=== PATIENT | male | born 1935 | race African-American/Black ===

== ENCOUNTER 2018-03-01 17:21 | Inpatient (IN) | payer OTHER ==
[~2018-03-01] VITALS: Ht 182.9 cm; Wt 78.9 kg
[2018-03-01 19:02] LABS: MEAN CORPUSCULAR HEMOGLOBIN 32.9 pg (28.0-32.0); MEAN CORPUSCULAR VOLUME 97.5 fL (80.0-94.0); MEAN PLATELET VOLUME 9.6 fl (7.4-10.4); PLATELET 63 x1000/uL (130-400); RED BLOOD CELL COUNT 1.57 mill/uL (4.7-6.1); RED CELL DISTRIBUTION WIDTH 18.1 % (11.6-14.6)
[2018-03-01 19:08] LABS: CHLORIDE 109 mEq/L (98-107)
[2018-03-01 19:09] LABS: HEMOGLOBIN. 5.2 g/dL (14.0-18.0)
[2018-03-01 19:10] LABS: HEMATOCRIT. 15.3 % (42.0-52.0)
[2018-03-01 19:11] LABS: INR 1.1; PROTHROMBIN TIME 10.7 sec (9.1-11.1)
[2018-03-01 19:50] LABS: PLATELET ESTIMATE DECREASED
[2018-03-01 21:20] VITALS: BP 95/53
[2018-03-01 21:28] VITALS: BP 95/53
[2018-03-01 22:10] VITALS: BP 90/54
[2018-03-01] MEDS ORDERED: TRAMADOL 50MG TABLET PO PRN (22:30)
[2018-03-01] MEDS ORDERED: DEXTROSE 50% WATER 50ML SYRINGE IV PRN (22:30)
[2018-03-01] MEDS ORDERED: ZOLPIDEM TARTRATE 5MG TABLET PO PRN (22:30)
[2018-03-01 23:35] VITALS: BP 96/57
[2018-03-01] MEDS ORDERED: ASPI-1159 MT (23:59)
[2018-03-01] MEDS ORDERED: SACU1TAB MT (23:59)
[2018-03-01] MEDS ORDERED: ALLO100T MT (23:59)
[2018-03-01] MEDS ORDERED: CARV3.1242 MT (23:59)
[2018-03-01] MEDS ORDERED: CLOP75TA33 MT (23:59)
[2018-03-01] MEDS ORDERED: SITA50TA3 MT (23:59)
[2018-03-01] MEDS ORDERED: SIMV40TA5 MT (23:59)
[2018-03-01] MEDS ORDERED: TAMS0.4C31 MT (23:59)
[2018-03-01] MEDS ORDERED: FINA5TAB11 MT (23:59)
[2018-03-01] MEDS ORDERED: FURO40TA5 MT (23:59)
[2018-03-01] MEDS ORDERED: POTA10CA42 MT (23:59)
[2018-03-02] VITALS (43 sets, daily range): BP systolic 89–136; BP diastolic 35–107
[2018-03-02] MEDS: INSULIN LISPRO 100 UNITS/ML SUBCUT SCH ×4 (06:40→21:38)
[2018-03-02] MEDS: BLOOD SUGAR DIAGNOSTIC STRIP TEST SCH ×8 (06:40→23:26)
[2018-03-02] MEDS ORDERED: PANTOPRAZOLE 40MG DR TABLET PO SCH (07:20)
[2018-03-02 07:28] LABS: CHLORIDE 111 mEq/L (98-107)
[2018-03-02 07:31] LABS: MEAN CORPUSCULAR HEMOGLOBIN 31.8 pg (28.0-32.0); MEAN CORPUSCULAR VOLUME 91.5 fL (80.0-94.0); MEAN PLATELET VOLUME 11.1 fl (7.4-10.4); PLATELET 65 x1000/uL (130-400); RED BLOOD CELL COUNT 2.15 mill/uL (4.7-6.1)
[2018-03-02 07:42] LABS: HEMOGLOBIN. 6.8 g/dL (14.0-18.0)
[2018-03-02 07:43] LABS: HEMATOCRIT. 19.7 % (42.0-52.0)
[2018-03-02] MEDS ORDERED: FUROSEMIDE 40MG/4ML VIAL IVP NR (09:45)
[2018-03-02] MEDS: CARVEDILOL 3.125 MG TABLET PO SCH ×2 (13:40→21:00)
[2018-03-02] MEDS ORDERED: ETOMIDATE 2MG/ML 10ML VIAL IV ONE (14:00)
[2018-03-02] MEDS ORDERED: SODIUM BICARBONATE 7.5% 0.9 MEQ/ML 50ML SYR IV ONE (14:15)
[2018-03-02] MEDS ORDERED: CALCIUM CHLORIDE 1GM/10ML SYR IV ONE (14:15)
[2018-03-02 14:26] LABS: BG BASE EXCESS -7.5 mmol/L (-2.0-2.0); BG CARBOXYHEMOGLOBIN 0.6 % (0.5-1.5); BG DEOXYHEMOGLOBIN 12.9 % (0.0-5.0); BG FRACTION INSPIRED OXYGEN 28; BG HCO3 ACT 15.3 mmol/L (22.0-26.0); BG METHEMOGLOBIN 0.1 % (0.0-1.5); BG OXYHEMOGLOBIN 86.4 % (94.0-97.0); BG PCO2 22.8 mmHg (35.0-45.0); BG PH 7.446 (7.350-7.450); BG PO2 53.3 mmHg (75.0-100.0); BG SAMPLE SITE RIGHT RADIAL; BG TOTAL HEMOGLOBIN 8.5 g/dL (12.0-18.0); BG VENT MODE NASAL CANNULA
[2018-03-02] MEDS ORDERED: IPRATROPIUM/ALBUTEROL 0.5-3(2.5)MG/3ML NEB HHN PRN (14:45)
[2018-03-02] MEDS ORDERED: LIDOCAINE HCL/PF 1% 2ML VIAL ONE (15:12)
[2018-03-02] MEDS ORDERED: LEVOFLOXACIN 250MG PREMIX 50 ML IV ONE (15:45)
[2018-03-02] MEDS: IPRATROPIUM/ALBUTEROL 0.5-3(2.5)MG/3ML NEB HHN SCH ×3 (16:05→23:33)
[2018-03-02 16:06] LABS: PLATELET ESTIMATE DECREASED
[2018-03-02] MEDS ORDERED: LORAZEPAM 2MG/ML CPJ IV PRN (16:30)
[2018-03-02 16:39] LABS: BG BASE EXCESS -16.4 mmol/L (-2.0-2.0); BG CARBOXYHEMOGLOBIN 0.3 % (0.5-1.5); BG DEOXYHEMOGLOBIN 12.1 % (0.0-5.0); BG FRACTION INSPIRED OXYGEN 100; BG HCO3 ACT 11.2 mmol/L (22.0-26.0); BG METHEMOGLOBIN 0.5 % (0.0-1.5); BG OXYGEN SATURATION 87.8 % (92.0-98.5); BG OXYHEMOGLOBIN 87.1 % (94.0-97.0); BG PCO2 33.3 mmHg (35.0-45.0); BG PH 7.146 (7.350-7.450); BG PO2 72.2 mmHg (75.0-100.0); BG SAMPLE SITE RIGHT RADIAL; BG TIDAL VOLUME(mL) 500 mL; BG TOTAL HEMOGLOBIN 8.9 g/dL (12.0-18.0); BG VENT MODE VENT - A/C; BG VENT RATE 16 set
[2018-03-02] MEDS ORDERED: PHENYLEPHRINE 40 MG in DEXT 5% WATER 246 ML IV PRN (17:00)
[2018-03-02] MEDS ORDERED: SODIUM BICARBONATE 8.4% 1 MEQ/ML 50ML SYR IV NR ×3 (17:15→19:20)
[2018-03-02] MEDS ORDERED: MORPHINE SULFATE 4 MG/ML CPJ (NOT FOR IM USE) IV PRN (17:30)
[2018-03-02] MEDS: PANTOPRAZOLE SODIUM 40 MG/VIAL IV SCH (17:39)
[2018-03-02 17:54] LABS: HEMATOCRIT. 26.5 % (42.0-52.0); HEMOGLOBIN. 8.7 g/dL (14.0-18.0); MEAN CORPUSCULAR HEMOGLOBIN 30.7 pg (28.0-32.0); MEAN CORPUSCULAR VOLUME 92.8 fL (80.0-94.0); MEAN PLATELET VOLUME 10.4 fl (7.4-10.4); PLATELET 84 x1000/uL (130-400); RED BLOOD CELL COUNT 2.85 mill/uL (4.7-6.1); RED CELL DISTRIBUTION WIDTH 17.6 % (11.6-14.6)
[2018-03-02 17:58] LABS: CHLORIDE 109 mEq/L (98-107)
[2018-03-02] MEDS ORDERED: AZTREONAM 1 G in DEXTROSE 5% WATER 50 ML IV NR (18:00)
[2018-03-02 18:05] LABS: BG BASE EXCESS -3.9 mmol/L (-2.0-2.0); BG CARBOXYHEMOGLOBIN 0.3 % (0.5-1.5); BG DEOXYHEMOGLOBIN 2.2 % (0.0-5.0); BG HCO3 ACT 19.9 mmol/L (22.0-26.0); BG METHEMOGLOBIN 0.4 % (0.0-1.5); BG OXYGEN SATURATION 97.8 % (92.0-98.5); BG OXYHEMOGLOBIN 97.1 % (94.0-97.0); BG PH 7.426 (7.350-7.450); BG PO2 132.3 mmHg (75.0-100.0); BG SAMPLE SITE RIGHT RADIAL; BG TIDAL VOLUME(mL) 500 mL; BG TOTAL HEMOGLOBIN 8.1 g/dL (12.0-18.0); BG VENT MODE VENT - A/C; BG VENT RATE 16 set
[2018-03-02 18:07] LABS: CREATINE KINASE 483 IU/L (39-308)
[2018-03-02 18:09] LABS: CREATINE KINASE MB FRACTION 25.4 ng/mL (0.5-3.6)
[2018-03-02] MEDS: SODIUM BICARBONATE 50 MEQ in DEXT 5%/0.45% NACL 1000ML 1,000 ML IV SCH ×3 (18:15)
[2018-03-02] MEDS: PROPOFOL 10MG/ML 100ML 100 ML IV PRN ×2 (18:26→22:11)
[2018-03-02] MEDS: NOREPINEPHRINE 8 MG in DEXTROSE 5% WATER 250 ML IV SCH (18:27)
[2018-03-02 18:54] LABS: PLATELET ESTIMATE DECREASED
[2018-03-02] MEDS ORDERED: DEXTROSE 50% WATER 50ML SYRINGE IV NR (19:15)
[2018-03-02] MEDS ORDERED: SODIUM POLYSTYRENE SULFONATE 15 G/60 ML BOT NG NR (19:20)
[2018-03-02] MEDS ORDERED: INSULIN REGULAR (HUMULIN R) 300UNITS/3ML IV NR ×2 (19:27→19:45)
[2018-03-02] MEDS: METRONIDAZOLE 500 MG PREMIX 100 ML IV SCH (20:52)
[2018-03-03] VITALS (96 sets, daily range): BP systolic 64–134; BP diastolic 30–88
[2018-03-03] MEDS: NOREPINEPHRINE 8 MG in DEXTROSE 5% WATER 250 ML IV SCH (00:09)
[2018-03-03 00:43] LABS: CLARITY URINE CLOUDY (CLEAR); COLOR URINE YELLOW (YELLOW); KETONES URINE NEGATIVE (NEGATIVE); LEUKOCYTE ESTERASE URINE 1+ (NEGATIVE); NITRITE URINE NEGATIVE (NEGATIVE); OCCULT BLOOD URINE 3+ (NEGATIVE); PROTEIN URINE 1+ (NEGATIVE); SPECIFIC GRAVITY URINE 1.015 (1.005-1.030)
[2018-03-03] MEDS: FUROSEMIDE 40MG/4ML VIAL IVP SCH ×3 (01:56→17:17)
[2018-03-03] MEDS ORDERED: NOREPINEPHRINE 8 MG in DEXTROSE 5% WATER 250 ML IV PRN (04:00)
[2018-03-03] MEDS: IPRATROPIUM/ALBUTEROL 0.5-3(2.5)MG/3ML NEB HHN SCH ×5 (04:14→21:19)
[2018-03-03] MEDS: PROPOFOL 10MG/ML 100ML 100 ML IV PRN ×4 (05:17→19:43)
[2018-03-03] MEDS: AZTREONAM 500MG in DEXTROSE 5% WATER 50ML IV SCH ×2 (05:26→17:18)
[2018-03-03] MEDS: METRONIDAZOLE 500 MG PREMIX 100 ML IV SCH ×3 (06:02→21:37)
[2018-03-03 06:19] LABS: HEMATOCRIT. 24.9 % (42.0-52.0); HEMOGLOBIN. 8.5 g/dL (14.0-18.0); MEAN CORPUSCULAR HEMOGLOBIN 31.3 pg (28.0-32.0); MEAN CORPUSCULAR VOLUME 91.7 fL (80.0-94.0); MEAN PLATELET VOLUME 10.4 fl (7.4-10.4); PLATELET 75 x1000/uL (130-400); RED BLOOD CELL COUNT 2.71 mill/uL (4.7-6.1); RED CELL DISTRIBUTION WIDTH 16.8 % (11.6-14.6)
[2018-03-03 08:51] LABS: PLATELET ESTIMATE DECREASED
[2018-03-03 08:56] LABS: BG BASE EXCESS -1.8 mmol/L (-2.0-2.0); BG CARBOXYHEMOGLOBIN 0.3 % (0.5-1.5); BG DEOXYHEMOGLOBIN 15.8 % (0.0-5.0); BG METHEMOGLOBIN 0.4 % (0.0-1.5); BG OXYGEN SATURATION 84.1 % (92.0-98.5); BG OXYHEMOGLOBIN 83.5 % (94.0-97.0); BG PCO2 33.1 mmHg (35.0-45.0); BG PO2 51.1 mmHg (75.0-100.0); BG SAMPLE SITE RIGHT RADIAL; BG TIDAL VOLUME(mL) 500 mL; BG TOTAL HEMOGLOBIN 8.2 g/dL (12.0-18.0); BG VENT MODE VENT - A/C; BG VENT RATE 16 set
[2018-03-03] MEDS ORDERED: FUROSEMIDE 40MG/4ML VIAL IVP SCH (09:00)
[2018-03-03] MEDS: CARVEDILOL 3.125 MG TABLET PO SCH ×2 (09:00→21:37)
[2018-03-03] MEDS: PANTOPRAZOLE SODIUM 40 MG/VIAL IV SCH (09:27)
[2018-03-03 10:56] LABS: BG BASE EXCESS -2.1 mmol/L (-2.0-2.0); BG CARBOXYHEMOGLOBIN 0.3 % (0.5-1.5); BG DEOXYHEMOGLOBIN 0.9 % (0.0-5.0); BG HCO3 ACT 21.2 mmol/L (22.0-26.0); BG METHEMOGLOBIN 0.5 % (0.0-1.5); BG OXYGEN SATURATION 99.1 % (92.0-98.5); BG OXYHEMOGLOBIN 98.3 % (94.0-97.0); BG PCO2 30.2 mmHg (35.0-45.0); BG PH 7.464 (7.350-7.450); BG PO2 413.1 mmHg (75.0-100.0); BG SAMPLE SITE RIGHT BRACHIAL; BG TIDAL VOLUME(mL) 500 mL; BG TOTAL HEMOGLOBIN 8.3 g/dL (12.0-18.0); BG VENT MODE VENT - A/C; BG VENT RATE 16 set
[2018-03-03] MEDS: BLOOD SUGAR DIAGNOSTIC STRIP TEST SCH ×3 (11:35→23:35)
[2018-03-03] MEDS: INSULIN LISPRO 100 UNITS/ML SUBCUT SCH ×3 (11:44→23:36)
[2018-03-03] MEDS: DOBUTAMINE 250MG PREMIX 250 ML IV SCH ×3 (12:04→16:43)
[2018-03-03] MEDS: SODIUM BICARBONATE 50 MEQ in DEXT 5%/0.45% NACL 1000ML 1,000 ML IV SCH ×3 (13:04)
[2018-03-03] MEDS ORDERED: DOBUTAMINE HCL 500 MG in DEXT 5% WATER 210 ML IV SCH ×2 (16:45→23:00)
[2018-03-03] MEDS: NOREPINEPHRINE 16 MG in DEXT 5% WATER 234 ML IV PRN (17:18)
[2018-03-03] MEDS: DOBUTAMINE HCL IN DEXTROSE 5 % 250 ML IV PRN ×2 (18:15→21:50)
[2018-03-03] MEDS ORDERED: DOBUTAMINE HCL IN DEXTROSE 5 % 250 ML IV PRN ×2 (22:04→23:45)
[2018-03-03] MEDS ORDERED: DOBUTAMINE 250MG PREMIX 250 ML IV SCH (22:10)
[2018-03-04] VITALS (108 sets, daily range): BP systolic 73–147; BP diastolic 35–65
[2018-03-04] MEDS: PROPOFOL 10MG/ML 100ML 100 ML IV PRN ×4 (00:14→20:27)
[2018-03-04] MEDS: IPRATROPIUM/ALBUTEROL 0.5-3(2.5)MG/3ML NEB HHN SCH ×6 (00:59→20:19)
[2018-03-04] MEDS: DOBUTAMINE HCL 500 MG in DEXT 5% WATER 210 ML IV SCH ×3 (01:16→17:50)
[2018-03-04] MEDS: FUROSEMIDE 40MG/4ML VIAL IVP SCH ×3 (02:15→17:50)
[2018-03-04] MEDS: AZTREONAM 500MG in DEXTROSE 5% WATER 50ML IV SCH ×2 (05:21→19:40)
[2018-03-04] MEDS: METRONIDAZOLE 500 MG PREMIX 100 ML IV SCH ×3 (05:21→23:12)
[2018-03-04] MEDS: BLOOD SUGAR DIAGNOSTIC STRIP TEST SCH ×3 (05:26→17:16)
[2018-03-04] MEDS: INSULIN LISPRO 100 UNITS/ML SUBCUT SCH ×3 (05:26→17:16)
[2018-03-04 05:43] LABS: BASOPHILS % 0.1 % (0.0-2.0); EOSINOPHILS % 0.3 % (0.0-5.0); LYMPHOCYTES % 55.3 % (20.0-50.0); MEAN CORPUSCULAR VOLUME 91.2 fL (80.0-94.0); MEAN PLATELET VOLUME 9.7 fl (7.4-10.4); MONOCYTES % 3.7 % (2.0-8.0); NEUTROPHILS % 40.6 % (40.0-76.0); RED BLOOD CELL COUNT 2.25 mill/uL (4.7-6.1); RED CELL DISTRIBUTION WIDTH 16.3 % (11.6-14.6)
[2018-03-04 06:02] LABS: HEMATOCRIT. 20.5 % (42.0-52.0)
[2018-03-04 08:37] LABS: BG BASE EXCESS -2.3 mmol/L (-2.0-2.0); BG CARBOXYHEMOGLOBIN 0.5 % (0.5-1.5); BG DEOXYHEMOGLOBIN 1.3 % (0.0-5.0); BG FRACTION INSPIRED OXYGEN 50; BG HCO3 ACT 21.1 mmol/L (22.0-26.0); BG METHEMOGLOBIN 0.4 % (0.0-1.5); BG OXYGEN SATURATION 98.7 % (92.0-98.5); BG OXYHEMOGLOBIN 97.8 % (94.0-97.0); BG PCO2 29.5 mmHg (35.0-45.0); BG PH 7.473 (7.350-7.450); BG PO2 190.9 mmHg (75.0-100.0); BG SAMPLE SITE RIGHT RADIAL; BG TIDAL VOLUME(mL) 500 mL; BG VENT MODE VENT - A/C; BG VENT RATE 16 set
[2018-03-04] MEDS: CARVEDILOL 3.125 MG TABLET PO SCH ×2 (08:47→21:00)
[2018-03-04] MEDS: PANTOPRAZOLE SODIUM 40 MG/VIAL IV SCH (09:03)
[2018-03-04] MEDS ORDERED: AMIODARONE HCL 150 MG in DEXT 5% WATER 100 ML IV NR (10:45)
[2018-03-04] MEDS: AMIODARONE HCL 900 MG in DEXT 5% WATER 500 ML IV PRN (11:11)
[2018-03-04 12:33] LABS: MEAN CORPUSCULAR HEMOGLOBIN 31.4 pg (28.0-32.0); MEAN CORPUSCULAR VOLUME 89.3 fL (80.0-94.0); RED CELL DISTRIBUTION WIDTH 16.6 % (11.6-14.6)
[2018-03-04 12:40] LABS: HEMATOCRIT 18.8 % (42.0-52.0); HEMOGLOBIN 6.6 g/dL (14.0-18.0)
[2018-03-04] MEDS: SODIUM BICARBONATE 50 MEQ in DEXT 5%/0.45% NACL 1000ML 1,000 ML IV SCH ×3 (12:40)
[2018-03-04 12:41] LABS: PLATELET 40 x1000/uL (130-400)
[2018-03-04 12:50] LABS: INR 1.1; PARTIAL THROMBOPLASTIN TIME 36.1 sec (23.4-31.0); PROTHROMBIN TIME 11.3 sec (9.1-11.1)
[2018-03-04 13:30] LABS: PLATELET 40 x1000/uL (130-400)
[2018-03-04 16:56] LABS: HEMOGLOBIN 8.2 g/dL (14.0-18.0)
[2018-03-04] MEDS: NOREPINEPHRINE 16 MG in DEXT 5% WATER 234 ML IV PRN (20:32)
[2018-03-05] VITALS (87 sets, daily range): BP systolic 88–137; BP diastolic 43–83
[2018-03-05] MEDS: IPRATROPIUM/ALBUTEROL 0.5-3(2.5)MG/3ML NEB HHN SCH ×6 (01:00→20:17)
[2018-03-05] MEDS: DOBUTAMINE HCL 500 MG in DEXT 5% WATER 210 ML IV SCH ×3 (03:29→23:55)
[2018-03-05] MEDS: PROPOFOL 10MG/ML 100ML 100 ML IV PRN ×3 (04:54→23:17)
[2018-03-05 05:21] LABS: HEMATOCRIT 24.1 % (42.0-52.0); HEMOGLOBIN 8.2 g/dL (14.0-18.0); MEAN CORPUSCULAR HEMOGLOBIN 30.5 pg (28.0-32.0); MEAN CORPUSCULAR VOLUME 89.5 fL (80.0-94.0); PLATELET 57 x1000/uL (130-400); RED BLOOD CELL COUNT 2.69 mill/uL (4.7-6.1); RED CELL DISTRIBUTION WIDTH 16.1 % (11.6-14.6)
[2018-03-05] MEDS: AZTREONAM 500MG in DEXTROSE 5% WATER 50ML IV SCH ×2 (05:25→17:45)
[2018-03-05 05:30] LABS: CHLORIDE 102 mEq/L (98-107)
[2018-03-05] MEDS: BLOOD SUGAR DIAGNOSTIC STRIP TEST SCH ×5 (06:00→23:23)
[2018-03-05] MEDS: METRONIDAZOLE 500 MG PREMIX 100 ML IV SCH ×3 (06:33→21:21)
[2018-03-05] MEDS: FUROSEMIDE 40MG/4ML VIAL IVP SCH ×2 (06:34→17:45)
[2018-03-05] MEDS: INSULIN LISPRO 100 UNITS/ML SUBCUT SCH ×5 (06:36→23:23)
[2018-03-05 08:07] LABS: BG BASE EXCESS -1.4 mmol/L (-2.0-2.0); BG CARBOXYHEMOGLOBIN 0.3 % (0.5-1.5); BG DEOXYHEMOGLOBIN 1.6 % (0.0-5.0); BG FRACTION INSPIRED OXYGEN 40; BG METHEMOGLOBIN 0.5 % (0.0-1.5); BG OXYGEN SATURATION 98.4 % (92.0-98.5); BG OXYHEMOGLOBIN 97.6 % (94.0-97.0); BG PCO2 31.7 mmHg (35.0-45.0); BG PO2 143.5 mmHg (75.0-100.0); BG SAMPLE SITE RIGHT BRACHIAL; BG TIDAL VOLUME(mL) 500 mL; BG TOTAL HEMOGLOBIN 8.7 g/dL (12.0-18.0); BG VENT MODE VENT - A/C; BG VENT RATE 16 set
[2018-03-05] MEDS: CARVEDILOL 3.125 MG TABLET PO SCH ×2 (08:46→20:20)
[2018-03-05] MEDS: PANTOPRAZOLE SODIUM 40 MG/VIAL IV SCH (08:47)
[2018-03-05] MEDS: SODIUM BICARBONATE 50 MEQ in DEXT 5%/0.45% NACL 1000ML 1,000 ML IV SCH ×3 (08:47)
[2018-03-05] MEDS: AMIODARONE HCL 900 MG in DEXT 5% WATER 500 ML IV PRN (09:04)
[2018-03-05] MEDS ORDERED: POTASSIUM CHLORIDE 20MEQ/PACKET NG NR (10:30)
[2018-03-05] MEDS ORDERED: DEXT 5%/0.45% NACL 1000ML 1,000 ML IV SCH (14:45)
[2018-03-05] MEDS ORDERED: PROPOFOL 10MG/ML 100ML 100 ML IV PRN ×2 (19:28→19:30)
[2018-03-05] MEDS: AMIODARONE HCL 200 MG TABLET NG SCH (21:21)
[2018-03-06] VITALS (101 sets, daily range): BP systolic 81–123; BP diastolic 44–66
[2018-03-06] MEDS: IPRATROPIUM/ALBUTEROL 0.5-3(2.5)MG/3ML NEB HHN SCH ×6 (00:14→20:39)
[2018-03-06] MEDS: AZTREONAM 500MG in DEXTROSE 5% WATER 50ML IV SCH ×2 (05:11→17:07)
[2018-03-06] MEDS: BLOOD SUGAR DIAGNOSTIC STRIP TEST SCH ×3 (05:28→17:19)
[2018-03-06] MEDS: INSULIN LISPRO 100 UNITS/ML SUBCUT SCH ×4 (05:35→23:59)
[2018-03-06] MEDS: METRONIDAZOLE 500 MG PREMIX 100 ML IV SCH ×3 (05:57→21:29)
[2018-03-06 06:11] LABS: HEMOGLOBIN 7.7 g/dL (14.0-18.0); MEAN CORPUSCULAR VOLUME 88.9 fL (80.0-94.0); PLATELET 51 x1000/uL (130-400); RED BLOOD CELL COUNT 2.47 mill/uL (4.7-6.1); RED CELL DISTRIBUTION WIDTH 15.7 % (11.6-14.6)
[2018-03-06] MEDS: FUROSEMIDE 40MG/4ML VIAL IVP SCH ×2 (06:18→17:07)
[2018-03-06] MEDS: PROPOFOL 10MG/ML 100ML 100 ML IV PRN ×2 (06:29→14:27)
[2018-03-06] MEDS: DOBUTAMINE HCL 500 MG in DEXT 5% WATER 210 ML IV SCH ×2 (07:55→17:08)
[2018-03-06] MEDS ORDERED: FUROSEMIDE 40MG/4ML VIAL IVP SCH (08:00)
[2018-03-06] MEDS: PANTOPRAZOLE SODIUM 40 MG/VIAL IV SCH (08:28)
[2018-03-06] MEDS: AMIODARONE HCL 200 MG TABLET NG SCH ×2 (08:28→21:29)
[2018-03-06] MEDS: CARVEDILOL 3.125 MG TABLET PO SCH ×2 (08:29→21:29)
[2018-03-06 08:32] LABS: BG BASE EXCESS 3.5 mmol/L (-2.0-2.0); BG CARBOXYHEMOGLOBIN 0.3 % (0.5-1.5); BG DEOXYHEMOGLOBIN 1.8 % (0.0-5.0); BG FRACTION INSPIRED OXYGEN 30; BG HCO3 ACT 26.8 mmol/L (22.0-26.0); BG METHEMOGLOBIN 0.6 % (0.0-1.5); BG OXYGEN SATURATION 98.2 % (92.0-98.5); BG OXYHEMOGLOBIN 97.3 % (94.0-97.0); BG PH 7.502 (7.350-7.450); BG PO2 123.6 mmHg (75.0-100.0); BG SAMPLE SITE RIGHT RADIAL; BG TIDAL VOLUME(mL) 500 mL; BG VENT MODE VENT - A/C; BG VENT RATE 16 set
[2018-03-06] MEDS ORDERED: POTASSIUM CHLORIDE 20MEQ TABLET SR PO NR (18:00)
[2018-03-06 18:29] LABS: HEMATOCRIT 25.1 % (42.0-52.0); HEMOGLOBIN 8.6 g/dL (14.0-18.0); MEAN CORPUSCULAR HEMOGLOBIN 30.5 pg (28.0-32.0); MEAN CORPUSCULAR VOLUME 88.8 fL (80.0-94.0); RED BLOOD CELL COUNT 2.83 mill/uL (4.7-6.1)
[2018-03-06 18:55] LABS: PLATELET 46 x1000/uL (130-400)
[2018-03-06] MEDS ORDERED: PROPOFOL 10MG/ML 100ML 100 ML IV PRN (19:15)
[2018-03-06 20:16] LABS: BG BASE EXCESS 1.5 mmol/L (-2.0-2.0); BG CARBOXYHEMOGLOBIN 0.3 % (0.5-1.5); BG DEOXYHEMOGLOBIN 2.2 % (0.0-5.0); BG FRACTION INSPIRED OXYGEN 30; BG METHEMOGLOBIN 0.4 % (0.0-1.5); BG OXYGEN SATURATION 97.8 % (92.0-98.5); BG OXYHEMOGLOBIN 97.1 % (94.0-97.0); BG PCO2 30.5 mmHg (35.0-45.0); BG PH 7.514 (7.350-7.450); BG PO2 112.6 mmHg (75.0-100.0); BG PRESSURE SUPPORT 10; BG SAMPLE SITE RIGHT RADIAL; BG TOTAL HEMOGLOBIN 10.3 g/dL (12.0-18.0); BG VENT MODE VENT - CPAP
[2018-03-07] VITALS (78 sets, daily range): BP systolic 96–143; BP diastolic 41–91
[2018-03-07] MEDS: IPRATROPIUM/ALBUTEROL 0.5-3(2.5)MG/3ML NEB HHN SCH ×7 (00:08→23:35)
[2018-03-07] MEDS: DOBUTAMINE HCL 500 MG in DEXT 5% WATER 210 ML IV SCH ×2 (03:43→13:33)
[2018-03-07] MEDS: AZTREONAM 500MG in DEXTROSE 5% WATER 50ML IV SCH ×2 (05:01→17:21)
[2018-03-07] MEDS: INSULIN LISPRO 100 UNITS/ML SUBCUT SCH ×3 (05:09→17:29)
[2018-03-07] MEDS: BLOOD SUGAR DIAGNOSTIC STRIP TEST SCH ×4 (05:10→17:21)
[2018-03-07] MEDS: METRONIDAZOLE 500 MG PREMIX 100 ML IV SCH ×3 (05:50→21:50)
[2018-03-07] MEDS: FUROSEMIDE 40MG/4ML VIAL IVP SCH ×2 (06:28→17:21)
[2018-03-07 06:38] LABS: BASOPHILS % 0.1 % (0.0-2.0); HEMATOCRIT. 24.2 % (42.0-52.0); HEMOGLOBIN. 8.5 g/dL (14.0-18.0); LYMPHOCYTES % 61.2 % (20.0-50.0); MEAN CORPUSCULAR HEMOGLOBIN 30.9 pg (28.0-32.0); MEAN CORPUSCULAR VOLUME 88.4 fL (80.0-94.0); MEAN PLATELET VOLUME 9.7 fl (7.4-10.4); MONOCYTES % 2.5 % (2.0-8.0); NEUTROPHILS % 35.2 % (40.0-76.0); RED BLOOD CELL COUNT 2.74 mill/uL (4.7-6.1); RED CELL DISTRIBUTION WIDTH 15.8 % (11.6-14.6)
[2018-03-07 06:48] LABS: PLATELET 47 x1000/uL (130-400)
[2018-03-07] MEDS ORDERED: KCL 20MEQ/100ML PREMIX 100 ML IV SCH (08:00)
[2018-03-07 08:11] LABS: BG BASE EXCESS 2.1 mmol/L (-2.0-2.0); BG CARBOXYHEMOGLOBIN 0.2 % (0.5-1.5); BG DEOXYHEMOGLOBIN 2.2 % (0.0-5.0); BG FRACTION INSPIRED OXYGEN 30; BG HCO3 ACT 25.5 mmol/L (22.0-26.0); BG METHEMOGLOBIN 0.1 % (0.0-1.5); BG OXYGEN SATURATION 97.8 % (92.0-98.5); BG OXYHEMOGLOBIN 97.5 % (94.0-97.0); BG PCO2 34.6 mmHg (35.0-45.0); BG PH 7.485 (7.350-7.450); BG PO2 109.2 mmHg (75.0-100.0); BG SAMPLE SITE RIGHT RADIAL; BG TOTAL HEMOGLOBIN 8.5 g/dL (12.0-18.0); BG VENT MODE VENT - CPAP
[2018-03-07] MEDS: PANTOPRAZOLE SODIUM 40 MG/VIAL IV SCH (08:40)
[2018-03-07] MEDS: AMIODARONE HCL 200 MG TABLET NG SCH ×2 (08:41→21:43)
[2018-03-07] MEDS: CARVEDILOL 3.125 MG TABLET PO SCH ×3 (08:43→21:43)
[2018-03-07] MEDS ORDERED: LIDOCAINE HCL 1% 20ML VIAL (Pyxis) INJ ONE (08:53)
[2018-03-07 12:51] LABS: BG BASE EXCESS 3.8 mmol/L (-2.0-2.0); BG CARBOXYHEMOGLOBIN 0.1 % (0.5-1.5); BG DEOXYHEMOGLOBIN 2.4 % (0.0-5.0); BG FRACTION INSPIRED OXYGEN 40; BG HCO3 ACT 27.2 mmol/L (22.0-26.0); BG METHEMOGLOBIN 0.4 % (0.0-1.5); BG OXYGEN SATURATION 97.6 % (92.0-98.5); BG OXYHEMOGLOBIN 97.1 % (94.0-97.0); BG PCO2 36.4 mmHg (35.0-45.0); BG PH 7.492 (7.350-7.450); BG PO2 111.4 mmHg (75.0-100.0); BG SAMPLE SITE RIGHT RADIAL; BG TOTAL HEMOGLOBIN 8.6 g/dL (12.0-18.0); BG VENT MODE MASK - AEROSOL
[2018-03-08] VITALS (22 sets, daily range): BP systolic 89–112; BP diastolic 50–72
[2018-03-08] MEDS: DOBUTAMINE HCL 500 MG in DEXT 5% WATER 210 ML IV SCH ×2 (01:28→13:05)
[2018-03-08] MEDS: IPRATROPIUM/ALBUTEROL 0.5-3(2.5)MG/3ML NEB HHN SCH ×5 (04:14→21:33)
[2018-03-08] MEDS: AZTREONAM 500MG in DEXTROSE 5% WATER 50ML IV SCH ×2 (06:23→17:54)
[2018-03-08] MEDS: METRONIDAZOLE 500 MG PREMIX 100 ML IV SCH ×3 (06:23→22:12)
[2018-03-08] MEDS: BLOOD SUGAR DIAGNOSTIC STRIP TEST SCH ×4 (06:23→17:17)
[2018-03-08 06:28] LABS: BASOPHILS % 1.1 % (0.0-2.0); EOSINOPHILS % 0.3 % (0.0-5.0); HEMATOCRIT. 23.5 % (42.0-52.0); HEMOGLOBIN. 8.2 g/dL (14.0-18.0); LYMPHOCYTES % 60.5 % (20.0-50.0); MEAN CORPUSCULAR HEMOGLOBIN 31.1 pg (28.0-32.0); MEAN CORPUSCULAR VOLUME 89.2 fL (80.0-94.0); MEAN PLATELET VOLUME 9.4 fl (7.4-10.4); MONOCYTES % 2.8 % (2.0-8.0); NEUTROPHILS % 35.3 % (40.0-76.0); RED BLOOD CELL COUNT 2.64 mill/uL (4.7-6.1); RED CELL DISTRIBUTION WIDTH 16.2 % (11.6-14.6)
[2018-03-08] MEDS: INSULIN LISPRO 100 UNITS/ML SUBCUT SCH ×4 (06:31→17:17)
[2018-03-08 06:48] LABS: PLATELET 45 x1000/uL (130-400)
[2018-03-08] MEDS: FUROSEMIDE 40MG/4ML VIAL IVP SCH ×2 (06:55→17:54)
[2018-03-08 08:34] LABS: BG CARBOXYHEMOGLOBIN 0.8 % (0.5-1.5); BG DEOXYHEMOGLOBIN 9.5 % (0.0-5.0); BG FRACTION INSPIRED OXYGEN 32; BG HCO3 ACT 25.7 mmol/L (22.0-26.0); BG METHEMOGLOBIN 0.3 % (0.0-1.5); BG OXYGEN SATURATION 90.4 % (92.0-98.5); BG OXYHEMOGLOBIN 89.4 % (94.0-97.0); BG PCO2 31.8 mmHg (35.0-45.0); BG PH 7.525 (7.350-7.450); BG PO2 55.3 mmHg (75.0-100.0); BG SAMPLE SITE RIGHT RADIAL; BG TOTAL HEMOGLOBIN 8.6 g/dL (12.0-18.0); BG VENT MODE NASAL CANNULA
[2018-03-08] MEDS: PANTOPRAZOLE SODIUM 40 MG/VIAL IV SCH (08:43)
[2018-03-08] MEDS: CARVEDILOL 3.125 MG TABLET PO SCH ×3 (08:43→22:12)
[2018-03-08] MEDS: AMIODARONE HCL 200 MG TABLET NG SCH (08:44)
[2018-03-08] MEDS ORDERED: POTASSIUM CHLORIDE 20MEQ TABLET SR PO SCH (12:15)
[2018-03-08] MEDS ORDERED: POTASSIUM CHLORIDE 20MEQ/PACKET PO SCH (12:45)
[2018-03-08] MEDS ORDERED: DOBUTAMINE HCL IN DEXTROSE 5 % 250 ML IV SCH (13:00)
[2018-03-09] VITALS (15 sets, daily range): BP systolic 95–122; BP diastolic 54–84
[2018-03-09] MEDS: INSULIN LISPRO 100 UNITS/ML SUBCUT SCH ×4 (00:31→16:45)
[2018-03-09] MEDS: BLOOD SUGAR DIAGNOSTIC STRIP TEST SCH ×4 (00:31→16:28)
[2018-03-09] MEDS: IPRATROPIUM/ALBUTEROL 0.5-3(2.5)MG/3ML NEB HHN SCH ×6 (01:33→20:33)
[2018-03-09] MEDS: METRONIDAZOLE 500 MG PREMIX 100 ML IV SCH (05:30)
[2018-03-09] MEDS: FUROSEMIDE 40MG/4ML VIAL IVP SCH ×2 (06:36→21:39)
[2018-03-09] MEDS: AZTREONAM 500MG in DEXTROSE 5% WATER 50ML IV SCH (06:37)
[2018-03-09 06:59] LABS: BASOPHILS % 0.3 % (0.0-2.0); EOSINOPHILS % 0.5 % (0.0-5.0); HEMATOCRIT. 24.1 % (42.0-52.0); HEMOGLOBIN. 8.3 g/dL (14.0-18.0); LYMPHOCYTES % 62.6 % (20.0-50.0); MEAN CORPUSCULAR HEMOGLOBIN 30.8 pg (28.0-32.0); MEAN CORPUSCULAR VOLUME 89.8 fL (80.0-94.0); MEAN PLATELET VOLUME 11.4 fl (7.4-10.4); MONOCYTES % 2.6 % (2.0-8.0); PLATELET 56 x1000/uL (130-400); RED BLOOD CELL COUNT 2.69 mill/uL (4.7-6.1); RED CELL DISTRIBUTION WIDTH 15.5 % (11.6-14.6)
[2018-03-09] MEDS: PANTOPRAZOLE SODIUM 40 MG/VIAL IV SCH (08:26)
[2018-03-09] MEDS: AMIODARONE HCL 200 MG TABLET NG SCH (08:27)
[2018-03-09] MEDS: CARVEDILOL 3.125 MG TABLET PO SCH ×2 (08:27→21:39)
[2018-03-09] MEDS ORDERED: POTASSIUM CHLORIDE 20MEQ/PACKET PO SCH (10:00)
[2018-03-09] MEDS ORDERED: FUROSEMIDE 40MG/4ML VIAL IVP SCH ×2 (10:00→14:00)
[2018-03-09 12:23] LABS: BG CARBOXYHEMOGLOBIN 0.3 % (0.5-1.5); BG DEOXYHEMOGLOBIN 4.9 % (0.0-5.0); BG HCO3 ACT 23.3 mmol/L (22.0-26.0); BG METHEMOGLOBIN 0.2 % (0.0-1.5); BG OXYGEN SATURATION 95.1 % (92.0-98.5); BG OXYHEMOGLOBIN 94.6 % (94.0-97.0); BG PCO2 32.5 mmHg (35.0-45.0); BG PH 7.473 (7.350-7.450); BG PO2 80.4 mmHg (75.0-100.0); BG SAMPLE SITE RIGHT BRACHIAL; BG TOTAL HEMOGLOBIN 9.6 g/dL (12.0-18.0); BG VENT MODE MASK - NRB
[2018-03-09] MEDS: DOBUTAMINE HCL 500 MG in DEXT 5% WATER 210 ML IV SCH (12:26)
[2018-03-09] MEDS: METRONIDAZOLE 500MG TABLET PO SCH ×2 (14:10→21:39)
[2018-03-09 15:11] LABS: BG BILEVEL POS AIRWAY PRESSURE 15/5; BG CARBOXYHEMOGLOBIN 0.3 % (0.5-1.5); BG HCO3 ACT 25.2 mmol/L (22.0-26.0); BG METHEMOGLOBIN 0.4 % (0.0-1.5); BG OXYHEMOGLOBIN 97.3 % (94.0-97.0); BG PCO2 33.3 mmHg (35.0-45.0); BG PH 7.496 (7.350-7.450); BG PO2 131.9 mmHg (75.0-100.0); BG SAMPLE SITE RIGHT BRACHIAL; BG TOTAL HEMOGLOBIN 8.8 g/dL (12.0-18.0); BG VENT MODE MASK - BIPAP; BG VENT RATE 12 set
[2018-03-09] MEDS: VANCOMYCIN HCL 1000 MG/20 ML ORAL PO SCH (17:18)
[2018-03-09] MEDS ORDERED: FUROSEMIDE 40MG TABLET PO SCH (18:00)
[2018-03-10] VITALS (22 sets, daily range): BP systolic 94–139; BP diastolic 46–77
[2018-03-10] MEDS: VANCOMYCIN HCL 1000 MG/20 ML ORAL PO SCH ×5 (00:14→23:58)
[2018-03-10] MEDS: IPRATROPIUM/ALBUTEROL 0.5-3(2.5)MG/3ML NEB HHN SCH ×6 (00:27→21:03)
[2018-03-10] MEDS: INSULIN LISPRO 100 UNITS/ML SUBCUT SCH ×5 (00:31→23:59)
[2018-03-10] MEDS: BLOOD SUGAR DIAGNOSTIC STRIP TEST SCH ×5 (00:32→23:59)
[2018-03-10] MEDS: FUROSEMIDE 40MG/4ML VIAL IVP SCH ×2 (06:01→17:29)
[2018-03-10] MEDS: METRONIDAZOLE 500MG TABLET PO SCH ×3 (06:01→22:56)
[2018-03-10 06:56] LABS: BASOPHILS % 0.4 % (0.0-2.0); EOSINOPHILS % 0.1 % (0.0-5.0); HEMATOCRIT. 28.6 % (42.0-52.0); HEMOGLOBIN. 9.7 g/dL (14.0-18.0); LYMPHOCYTES % 59.1 % (20.0-50.0); MEAN CORPUSCULAR HEMOGLOBIN 30.8 pg (28.0-32.0); MEAN CORPUSCULAR VOLUME 90.9 fL (80.0-94.0); MEAN PLATELET VOLUME 11.3 fl (7.4-10.4); MONOCYTES % 1.8 % (2.0-8.0); NEUTROPHILS % 38.6 % (40.0-76.0); PLATELET 62 x1000/uL (130-400); RED BLOOD CELL COUNT 3.15 mill/uL (4.7-6.1); RED CELL DISTRIBUTION WIDTH 15.8 % (11.6-14.6)
[2018-03-10 07:20] LABS: BG BASE EXCESS 3.2 mmol/L (-2.0-2.0); BG BILEVEL POS AIRWAY PRESSURE 15/5; BG CARBOXYHEMOGLOBIN 0.1 % (0.5-1.5); BG DEOXYHEMOGLOBIN 1.7 % (0.0-5.0); BG METHEMOGLOBIN 0.3 % (0.0-1.5); BG OXYGEN SATURATION 98.3 % (92.0-98.5); BG OXYHEMOGLOBIN 97.9 % (94.0-97.0); BG PCO2 32.9 mmHg (35.0-45.0); BG PH 7.516 (7.350-7.450); BG PO2 135.5 mmHg (75.0-100.0); BG SAMPLE SITE RIGHT RADIAL; BG TOTAL HEMOGLOBIN 9.6 g/dL (12.0-18.0); BG VENT MODE MASK - BIPAP; BG VENT RATE 12 set
[2018-03-10] MEDS: DOBUTAMINE HCL 500 MG in DEXT 5% WATER 210 ML IV SCH (07:46)
[2018-03-10] MEDS: PANTOPRAZOLE SODIUM 40 MG/VIAL IV SCH (09:09)
[2018-03-10] MEDS: CARVEDILOL 3.125 MG TABLET PO SCH ×2 (09:10→21:00)
[2018-03-10] MEDS: AMIODARONE HCL 200 MG TABLET NG SCH (09:10)
[2018-03-11] VITALS (38 sets, daily range): BP systolic 67–142; BP diastolic 40–89
[2018-03-11] MEDS: IPRATROPIUM/ALBUTEROL 0.5-3(2.5)MG/3ML NEB HHN SCH ×6 (01:00→20:58)
[2018-03-11] MEDS: VANCOMYCIN HCL 1000 MG/20 ML ORAL PO SCH ×4 (05:31→23:43)
[2018-03-11] MEDS: METRONIDAZOLE 500MG TABLET PO SCH ×3 (05:31→22:52)
[2018-03-11] MEDS: BLOOD SUGAR DIAGNOSTIC STRIP TEST SCH ×4 (05:31→23:27)
[2018-03-11] MEDS: INSULIN LISPRO 100 UNITS/ML SUBCUT SCH ×4 (05:32→23:45)
[2018-03-11 06:03] LABS: HEMOGLOBIN 9.3 g/dL (14.0-18.0); MEAN CORPUSCULAR HEMOGLOBIN 30.6 pg (28.0-32.0); PLATELET 60 x1000/uL (130-400); RED BLOOD CELL COUNT 3.04 mill/uL (4.7-6.1); RED CELL DISTRIBUTION WIDTH 15.7 % (11.6-14.6)
[2018-03-11] MEDS: FUROSEMIDE 40MG/4ML VIAL IVP SCH ×2 (06:49→16:51)
[2018-03-11 08:03] LABS: BG BASE EXCESS 2.8 mmol/L (-2.0-2.0); BG CARBOXYHEMOGLOBIN 0.3 % (0.5-1.5); BG DEOXYHEMOGLOBIN 5.9 % (0.0-5.0); BG HCO3 ACT 25.3 mmol/L (22.0-26.0); BG METHEMOGLOBIN 0.3 % (0.0-1.5); BG OXYGEN SATURATION 94.1 % (92.0-98.5); BG OXYHEMOGLOBIN 93.5 % (94.0-97.0); BG PH 7.529 (7.350-7.450); BG PO2 67.6 mmHg (75.0-100.0); BG SAMPLE SITE RIGHT RADIAL; BG TOTAL HEMOGLOBIN 9.6 g/dL (12.0-18.0); BG VENT MODE MASK - NRB
[2018-03-11] MEDS: CARVEDILOL 3.125 MG TABLET PO SCH ×2 (10:06→21:00)
[2018-03-11] MEDS: PANTOPRAZOLE SODIUM 40 MG/VIAL IV SCH (10:06)
[2018-03-11] MEDS: AMIODARONE HCL 200 MG TABLET PO SCH (10:09)
[2018-03-11 10:48] LABS: BG BASE EXCESS 1.5 mmol/L (-2.0-2.0); BG BILEVEL POS AIRWAY PRESSURE 15/5; BG CARBOXYHEMOGLOBIN 0.3 % (0.5-1.5); BG DEOXYHEMOGLOBIN 6.3 % (0.0-5.0); BG FRACTION INSPIRED OXYGEN 80; BG HCO3 ACT 22.7 mmol/L (22.0-26.0); BG METHEMOGLOBIN 0.3 % (0.0-1.5); BG OXYGEN SATURATION 93.7 % (92.0-98.5); BG OXYHEMOGLOBIN 93.1 % (94.0-97.0); BG PCO2 24.7 mmHg (35.0-45.0); BG PH 7.581 (7.350-7.450); BG PO2 64.9 mmHg (75.0-100.0); BG SAMPLE SITE RIGHT RADIAL; BG TOTAL HEMOGLOBIN 9.4 g/dL (12.0-18.0); BG VENT MODE MASK - BIPAP
[2018-03-11 12:13] LABS: BG BASE EXCESS 0.2 mmol/L (-2.0-2.0); BG BILEVEL POS AIRWAY PRESSURE 15/7; BG CARBOXYHEMOGLOBIN 0.3 % (0.5-1.5); BG DEOXYHEMOGLOBIN 2.9 % (0.0-5.0); BG HCO3 ACT 22.2 mmol/L (22.0-26.0); BG METHEMOGLOBIN 0.1 % (0.0-1.5); BG OXYGEN SATURATION 97.1 % (92.0-98.5); BG OXYHEMOGLOBIN 96.7 % (94.0-97.0); BG PCO2 27.1 mmHg (35.0-45.0); BG PH 7.532 (7.350-7.450); BG PO2 98.9 mmHg (75.0-100.0); BG SAMPLE SITE RIGHT BRACHIAL; BG TOTAL HEMOGLOBIN 9.6 g/dL (12.0-18.0); BG VENT MODE MASK - BIPAP; BG VENT RATE 12 set
[2018-03-11] MEDS: DEXTROSE 5% WATER 1,000 ML IV SCH (13:05)
[2018-03-11 16:25] LABS: BG BASE EXCESS 1.7 mmol/L (-2.0-2.0); BG BILEVEL POS AIRWAY PRESSURE 13/7; BG CARBOXYHEMOGLOBIN 0.3 % (0.5-1.5); BG DEOXYHEMOGLOBIN 2.9 % (0.0-5.0); BG FRACTION INSPIRED OXYGEN 100; BG HCO3 ACT 23.7 mmol/L (22.0-26.0); BG METHEMOGLOBIN 0.4 % (0.0-1.5); BG OXYGEN SATURATION 97.1 % (92.0-98.5); BG OXYHEMOGLOBIN 96.4 % (94.0-97.0); BG PCO2 27.4 mmHg (35.0-45.0); BG PH 7.554 (7.350-7.450); BG SAMPLE SITE RIGHT BRACHIAL; BG TOTAL HEMOGLOBIN 8.9 g/dL (12.0-18.0); BG VENT MODE MASK - BIPAP
[2018-03-11 20:25] LABS: BG BASE EXCESS 2.2 mmol/L (-2.0-2.0); BG BILEVEL POS AIRWAY PRESSURE 15/7; BG CARBOXYHEMOGLOBIN 0.3 % (0.5-1.5); BG DEOXYHEMOGLOBIN 6.2 % (0.0-5.0); BG FRACTION INSPIRED OXYGEN 100; BG HCO3 ACT 23.7 mmol/L (22.0-26.0); BG METHEMOGLOBIN 0.3 % (0.0-1.5); BG OXYGEN SATURATION 93.8 % (92.0-98.5); BG OXYHEMOGLOBIN 93.2 % (94.0-97.0); BG PCO2 26.7 mmHg (35.0-45.0); BG PH 7.567 (7.350-7.450); BG PO2 65.7 mmHg (75.0-100.0); BG SAMPLE SITE LEFT RADIAL; BG TOTAL HEMOGLOBIN 9.5 g/dL (12.0-18.0); BG VENT MODE MASK - BIPAP; BG VENT RATE 12 set
[2018-03-11] MEDS ORDERED: NOREPINEPHRINE 8 MG in DEXT 5% WATER 242 ML IV PRN (21:30)
[2018-03-11] MEDS ORDERED: FUROSEMIDE 40MG/4ML VIAL IVP NR (21:30)
[2018-03-11] MEDS: ACETAMINOPHEN 650MG/20.3ML UDC PO PRN (21:45)
[2018-03-11 23:11] LABS: BG BASE EXCESS 0.3 mmol/L (-2.0-2.0); BG BILEVEL POS AIRWAY PRESSURE 15/7; BG CARBOXYHEMOGLOBIN 0.3 % (0.5-1.5); BG DEOXYHEMOGLOBIN 1.5 % (0.0-5.0); BG FRACTION INSPIRED OXYGEN 100; BG HCO3 ACT 22.3 mmol/L (22.0-26.0); BG METHEMOGLOBIN 0.3 % (0.0-1.5); BG OXYGEN SATURATION 98.5 % (92.0-98.5); BG OXYHEMOGLOBIN 97.9 % (94.0-97.0); BG PCO2 26.6 mmHg (35.0-45.0); BG PH 7.541 (7.350-7.450); BG PO2 156.7 mmHg (75.0-100.0); BG SAMPLE SITE RIGHT RADIAL; BG TOTAL HEMOGLOBIN 8.5 g/dL (12.0-18.0); BG VENT MODE MASK - BIPAP; BG VENT RATE 12 set
[2018-03-11] MEDS ORDERED: LORAZEPAM 2MG/ML CPJ IV PRN (23:45)
[2018-03-12] VITALS (106 sets, daily range): BP systolic 62–131; BP diastolic 33–86
[2018-03-12] MEDS: IPRATROPIUM/ALBUTEROL 0.5-3(2.5)MG/3ML NEB HHN SCH ×6 (00:41→20:44)
[2018-03-12] MEDS: BLOOD SUGAR DIAGNOSTIC STRIP TEST SCH ×4 (05:23→23:26)
[2018-03-12] MEDS: METRONIDAZOLE 500MG TABLET PO SCH ×3 (05:28→21:20)
[2018-03-12] MEDS: VANCOMYCIN HCL 1000 MG/20 ML ORAL PO SCH ×4 (05:28→23:33)
[2018-03-12] MEDS: INSULIN LISPRO 100 UNITS/ML SUBCUT SCH ×4 (05:29→23:27)
[2018-03-12 05:48] LABS: HEMATOCRIT 27.8 % (42.0-52.0); HEMOGLOBIN 9.1 g/dL (14.0-18.0); MEAN CORPUSCULAR HEMOGLOBIN 30.3 pg (28.0-32.0); MEAN CORPUSCULAR VOLUME 92.7 fL (80.0-94.0); PLATELET 84 x1000/uL (130-400); RED BLOOD CELL COUNT 3.01 mill/uL (4.7-6.1); RED CELL DISTRIBUTION WIDTH 16.1 % (11.6-14.6)
[2018-03-12] MEDS: FUROSEMIDE 40MG/4ML VIAL IVP SCH (06:16)
[2018-03-12 07:38] LABS: BG BASE EXCESS 0.8 mmol/L (-2.0-2.0); BG BILEVEL POS AIRWAY PRESSURE 15/7; BG CARBOXYHEMOGLOBIN 0.3 % (0.5-1.5); BG DEOXYHEMOGLOBIN 9.4 % (0.0-5.0); BG FRACTION INSPIRED OXYGEN 75; BG HCO3 ACT 22.7 mmol/L (22.0-26.0); BG METHEMOGLOBIN 0.4 % (0.0-1.5); BG OXYGEN SATURATION 90.5 % (92.0-98.5); BG OXYHEMOGLOBIN 89.9 % (94.0-97.0); BG PCO2 26.9 mmHg (35.0-45.0); BG PH 7.544 (7.350-7.450); BG PO2 56.3 mmHg (75.0-100.0); BG SAMPLE SITE RIGHT RADIAL; BG TOTAL HEMOGLOBIN 9.2 g/dL (12.0-18.0); BG VENT MODE MASK - BIPAP; BG VENT RATE 12 set
[2018-03-12] MEDS: CARVEDILOL 3.125 MG TABLET PO SCH ×2 (09:00→20:36)
[2018-03-12] MEDS ORDERED: NOREPINEPHRINE 8 MG in DEXT 5% WATER 242 ML IV PRN (09:30)
[2018-03-12] MEDS: PANTOPRAZOLE SODIUM 40 MG/VIAL IV SCH (09:32)
[2018-03-12] MEDS: AMIODARONE HCL 200 MG TABLET PO SCH (09:33)
[2018-03-12] MEDS: DOBUTAMINE 250MG PREMIX 250 ML IV SCH ×3 (09:34→21:32)
[2018-03-12 10:31] LABS: BG BASE EXCESS 0.4 mmol/L (-2.0-2.0); BG BILEVEL POS AIRWAY PRESSURE 15/7; BG CARBOXYHEMOGLOBIN 0.3 % (0.5-1.5); BG DEOXYHEMOGLOBIN 8.2 % (0.0-5.0); BG FRACTION INSPIRED OXYGEN 90; BG METHEMOGLOBIN 0.4 % (0.0-1.5); BG OXYGEN SATURATION 91.7 % (92.0-98.5); BG OXYHEMOGLOBIN 91.1 % (94.0-97.0); BG PCO2 25.1 mmHg (35.0-45.0); BG PH 7.561 (7.350-7.450); BG PO2 60.2 mmHg (75.0-100.0); BG SAMPLE SITE LEFT RADIAL; BG TOTAL HEMOGLOBIN 8.8 g/dL (12.0-18.0); BG TOTAL RESPIRATORY RATE 0 b/min; BG VENT MODE MASK - BIPAP; BG VENT RATE 12 set
[2018-03-12] MEDS: PROPOFOL 10MG/ML 100ML 100 ML IV PRN ×2 (11:55→19:08)
[2018-03-12] MEDS: DEXTROSE 5% WATER 1,000 ML IV SCH (12:10)
[2018-03-12 12:33] LABS: BG BASE EXCESS -2.1 mmol/L (-2.0-2.0); BG CARBOXYHEMOGLOBIN 0.3 % (0.5-1.5); BG DEOXYHEMOGLOBIN 7.3 % (0.0-5.0); BG FRACTION INSPIRED OXYGEN 100; BG HCO3 ACT 22.9 mmol/L (22.0-26.0); BG METHEMOGLOBIN 0.5 % (0.0-1.5); BG OXYGEN SATURATION 92.6 % (92.0-98.5); BG OXYHEMOGLOBIN 91.9 % (94.0-97.0); BG PCO2 39.9 mmHg (35.0-45.0); BG PH 7.376 (7.350-7.450); BG PO2 73.8 mmHg (75.0-100.0); BG SAMPLE SITE RIGHT RADIAL; BG TIDAL VOLUME(mL) 500 mL; BG TOTAL HEMOGLOBIN 8.2 g/dL (12.0-18.0); BG VENT MODE VENT - A/C; BG VENT RATE 14 set
[2018-03-12] MEDS ORDERED: LEVOFLOXACIN 750MG PREMIX 150 ML IV SCH (14:00)
[2018-03-12] MEDS: PHENYLEPHRINE 40 MG in DEXT 5% WATER 246 ML IV PRN ×2 (14:11→20:20)
[2018-03-12] MEDS ORDERED: SODIUM CHLORIDE 0.9% 10ML VIAL ONE (14:13)
[2018-03-12] MEDS ORDERED: SUCCINYLCHOLINE CHLORIDE 200MG/10ML IV ONE (14:13)
[2018-03-12] MEDS ORDERED: ETOMIDATE 2MG/ML 10ML VIAL IV ONE (14:13)
[2018-03-12] MEDS: NOREPINEPHRINE 32 MG in DEXT 5% WATER 468 ML IV PRN (17:00)
[2018-03-12] MEDS ORDERED: SODIUM CHLORIDE 0.9% 250 ML IV NR (23:05)
[2018-03-12 23:14] LABS: BG BASE EXCESS -3.1 mmol/L (-2.0-2.0); BG CARBOXYHEMOGLOBIN 0.3 % (0.5-1.5); BG DEOXYHEMOGLOBIN 1.9 % (0.0-5.0); BG FRACTION INSPIRED OXYGEN 90; BG HCO3 ACT 22.1 mmol/L (22.0-26.0); BG METHEMOGLOBIN 0.2 % (0.0-1.5); BG OXYGEN SATURATION 98.1 % (92.0-98.5); BG OXYHEMOGLOBIN 97.6 % (94.0-97.0); BG PCO2 40.2 mmHg (35.0-45.0); BG PH 7.359 (7.350-7.450); BG PO2 138.5 mmHg (75.0-100.0); BG PRESSURE SUPPORT 5; BG SAMPLE SITE RIGHT RADIAL; BG TIDAL VOLUME(mL) 500 mL; BG TOTAL HEMOGLOBIN 11.6 g/dL (12.0-18.0); BG VENT MODE VENT - A/C; BG VENT RATE 14 set
[2018-03-12] MEDS: ACETAMINOPHEN 650MG/20.3ML UDC PO PRN (23:33)
[2018-03-13] VITALS (93 sets, daily range): BP systolic 55–123; BP diastolic 33–79
[2018-03-13] MEDS: IPRATROPIUM/ALBUTEROL 0.5-3(2.5)MG/3ML NEB HHN SCH ×6 (00:07→20:03)
[2018-03-13] MEDS: DOBUTAMINE 250MG PREMIX 250 ML IV SCH ×4 (02:56→19:32)
[2018-03-13] MEDS: PHENYLEPHRINE 40 MG in DEXT 5% WATER 246 ML IV PRN ×6 (04:08→16:30)
[2018-03-13] MEDS: BLOOD SUGAR DIAGNOSTIC STRIP TEST SCH ×3 (05:19→17:49)
[2018-03-13] MEDS: METRONIDAZOLE 500MG TABLET PO SCH ×3 (05:23→22:13)
[2018-03-13] MEDS: VANCOMYCIN HCL 1000 MG/20 ML ORAL PO SCH ×3 (05:23→17:51)
[2018-03-13] MEDS: INSULIN LISPRO 100 UNITS/ML SUBCUT SCH ×3 (05:29→18:41)
[2018-03-13 05:45] LABS: HEMATOCRIT. 23.5 % (42.0-52.0); HEMOGLOBIN. 7.5 g/dL (14.0-18.0); MEAN CORPUSCULAR HEMOGLOBIN 29.9 pg (28.0-32.0); MEAN CORPUSCULAR VOLUME 93.6 fL (80.0-94.0); MEAN PLATELET VOLUME 11.1 fl (7.4-10.4); PLATELET 62 x1000/uL (130-400); RED BLOOD CELL COUNT 2.51 mill/uL (4.7-6.1); RED CELL DISTRIBUTION WIDTH 16.9 % (11.6-14.6)
[2018-03-13] MEDS: PROPOFOL 10MG/ML 100ML 100 ML IV PRN (06:03)
[2018-03-13 07:59] LABS: BG BASE EXCESS -3.2 mmol/L (-2.0-2.0); BG CARBOXYHEMOGLOBIN 0.1 % (0.5-1.5); BG DEOXYHEMOGLOBIN 2.3 % (0.0-5.0); BG FRACTION INSPIRED OXYGEN 80; BG HCO3 ACT 22.2 mmol/L (22.0-26.0); BG METHEMOGLOBIN 0.6 % (0.0-1.5); BG OXYGEN SATURATION 97.7 % (92.0-98.5); BG PCO2 41.2 mmHg (35.0-45.0); BG PH 7.349 (7.350-7.450); BG PO2 116.1 mmHg (75.0-100.0); BG SAMPLE SITE RIGHT RADIAL; BG TIDAL VOLUME(mL) 500 mL; BG TOTAL HEMOGLOBIN 7.8 g/dL (12.0-18.0); BG VENT MODE VENT - A/C; BG VENT RATE 14 set
[2018-03-13 08:00] LABS: PLATELET ESTIMATE DECREASED
[2018-03-13] MEDS ORDERED: FUROSEMIDE 40MG/4ML VIAL IVP SCH (09:00)
[2018-03-13] MEDS: CARVEDILOL 3.125 MG TABLET PO SCH ×2 (09:00→21:00)
[2018-03-13] MEDS: AMIODARONE HCL 200 MG TABLET PO SCH (09:52)
[2018-03-13] MEDS: PANTOPRAZOLE SODIUM 40 MG/VIAL IV SCH (10:13)
[2018-03-13] MEDS: NOREPINEPHRINE 32 MG in DEXT 5% WATER 468 ML IV PRN (10:41)
[2018-03-13] MEDS: ACETAMINOPHEN 650MG/20.3ML UDC PO PRN (12:48)
[2018-03-13] MEDS ORDERED: EPINEPHRINE 0.1MG/ML (1:10,000) 10ML SYR ONE (14:37)
[2018-03-13] MEDS: DEXTROSE 5% WATER 1,000 ML IV SCH (16:30)
[2018-03-13] MEDS ORDERED: PROPOFOL 10MG/ML 100ML 100 ML IV PRN (19:00)
[2018-03-13] MEDS ORDERED: PHENYLEPHRINE 80 MG in DEXT 5% WATER 492 ML IV PRN (19:15)
[2018-03-13] MEDS ORDERED: ALBUMIN HUMAN 12.5G/250ML (5%) IV NR (21:00)
[2018-03-13] MEDS ORDERED: DOPAMINE 800MG PREMIX 250 ML IV PRN (22:45)
[2018-03-14] MEDS ORDERED: LEVOFLOXACIN 500MG PREMIX 100 ML IV SCH (14:00)
[2018-04-07] MEDS ORDERED: SODIUM CHLORIDE 0.9% 250 ML IV ONE (23:00)
== END 2018-03-13 23:14 | disposition expired | DRG 870 ==
LOC: ER 19:17 → EDBEDREQ 19:37 → EDBEDREQTM 19:37 → ENRESERV 19:41 → 6WST 21:20 → 5EST 03-02 14:52 → CVICU 03-02 15:48 → 3WST 03-08 15:39 → CVICU 03-11 20:30
PROVIDERS: ADMIT Internal Medicine; ATTEND Internal Medicine
PROC: 5A1955Z Respiratory Ventilation, Greater than 96 Consecutive Hours (ICD-10-PCS; principal; 2018-03-02)
PROC: 30233N1 Transfusion of Nonautologous Red Blood Cells into Peripheral Vein, Percutaneous Approach (ICD-10-PCS; 2018-03-02)
PROC: 5A12012 Performance of Cardiac Output, Single, Manual (ICD-10-PCS; 2018-03-02)
PROC: 0BH17EZ Insertion of Endotracheal Airway into Trachea, Via Natural or Artificial Opening (ICD-10-PCS; 2018-03-02)
PROC: 30233R1 Transfusion of Nonautologous Platelets into Peripheral Vein, Percutaneous Approach (ICD-10-PCS; 2018-03-04)
PROC: 02HV33Z Insertion of Infusion Device into Superior Vena Cava, Percutaneous Approach (ICD-10-PCS; 2018-03-07)
PROC: B548ZZA Ultrasonography of Superior Vena Cava, Guidance (ICD-10-PCS; 2018-03-07)
PROC: 5A09357 Assistance with Respiratory Ventilation, Less than 24 Consecutive Hours, Continuous Positive Airway Pressure (ICD-10-PCS; 2018-03-10)
PROC: 5A09357 Assistance with Respiratory Ventilation, Less than 24 Consecutive Hours, Continuous Positive Airway Pressure (ICD-10-PCS; 2018-03-11)
PROC: 5A09357 Assistance with Respiratory Ventilation, Less than 24 Consecutive Hours, Continuous Positive Airway Pressure (ICD-10-PCS; 2018-03-12)
PROC: 5A1935Z Respiratory Ventilation, Less than 24 Consecutive Hours (ICD-10-PCS; 2018-03-12)
DX: A41.9 Sepsis, unspecified organism (principal); I21.4 Non-ST elevation (NSTEMI) myocardial infarction; J96.01 Acute respiratory failure with hypoxia; R65.21 Severe sepsis with septic shock; D65 Disseminated intravascular coagulation [defibrination syndrome]; I50.23 Acute on chronic systolic (congestive) heart failure; N17.0 Acute kidney failure with tubular necrosis; J18.9 Pneumonia, unspecified organism; C91.10 Chronic lymphocytic leukemia of B-cell type not having achieved remission; E87.2 Acidosis; D61.818 Other pancytopenia; D68.69 Other thrombophilia; E46 Unspecified protein-calorie malnutrition; E87.4 Mixed disorder of acid-base balance; G93.40 Encephalopathy, unspecified; I13.0 Hypertensive heart and chronic kidney disease with heart failure and stage 1 through stage 4 chronic kidney disease, or unspecified chronic kidney disease; I48.92 Unspecified atrial flutter; N39.0 Urinary tract infection, site not specified; I25.5 Ischemic cardiomyopathy; D64.9 Anemia, unspecified; E11.22 Type 2 diabetes mellitus with diabetic chronic kidney disease; Z95.810 Presence of automatic (implantable) cardiac defibrillator; N40.0 Benign prostatic hyperplasia without lower urinary tract symptoms; D63.1 Anemia in chronic kidney disease; E78.00 Pure hypercholesterolemia, unspecified; E78.5 Hyperlipidemia, unspecified; E86.0 Dehydration; E87.6 Hypokalemia; E87.5 Hyperkalemia; I25.10 Atherosclerotic heart disease of native coronary artery without angina pectoris; Z87.891 Personal history of nicotine dependence; M10.9 Gout, unspecified; R57.0 Cardiogenic shock; R62.7 Adult failure to thrive; L50.9 Urticaria, unspecified; Z88.0 Allergy status to penicillin; Z92.21 Personal history of antineoplastic chemotherapy; Z95.5 Presence of coronary angioplasty implant and graft; J44.9 Chronic obstructive pulmonary disease, unspecified; I27.20 Pulmonary hypertension, unspecified; I25.2 Old myocardial infarction; N18.3 Chronic kidney disease, stage 3 (moderate); R80.9 Proteinuria, unspecified; Z68.23 Body mass index [BMI] 23.0-23.9, adult
CPT/HCPCS: 31500; 36415; 36569; 36600; 71045; 76937; 78580; 80048; 80053; 80076; 81003; 82270; 82375; 82550; 82553; 82805; 82962; 84132; 84145; 84478; 84484; 85014; 85018; 85025; 85027; 85362; 85384; 85610; 85730; 86850; 86900; 86920; 87040; 87070; 87086; 92610; 93005; 93306; 93970; 94002; 94003; 94640; 94660; 99291; A4216; A6261; C1725; C9113; J0282; J0330; J1250; J1265; J1815; J1940; J1956; J2060; J2370; J2704; J3370; J3480; J3490; J7040; J7050; J7060; J7070; J7620; P9016; P9034; P9041